=== PATIENT | female | born 1960 | race Caucasian/White ===

== ENCOUNTER 2023-07-08 15:30 | Emergency (ER) | payer OTHER, SELFPAY ==
[2023-07-08 15:31] VITALS: BP 110/69; PULSE 75; RESP 18; TEMP 36.4; O2SAT 98; BMI 29.0
--- NOTE | 2023-07-08 15:56 | EKG12_ITS ---
Test Reason : SC Blood Pressure : / mmHG Vent. Rate : 066 BPM Atrial Rate : 066 BPM P-R Int : 170 ms QRS Dur : 078 ms QT Int : 408 ms P-R-T Axes : 051 027 023 degrees QTc Int : 427 ms Normal sinus rhythm Normal ECG Confirmed by YAIR MARTINEZ MD ([id number]), editor map LIZETH NORRIS ([id number]) on 07/09/2023 10:58:22 AM Referred By: Confirmed By:YAIR MARTINEZ MD
--- NOTE | 2023-07-08 16:00 | RAD_ITS ---
INDICATION: cough EXAMINATION/TECHNIQUE: X-RAY - XR Chest 2 Views COMPARISON: None. FINDINGS: The lungs are clear. Tortuous and calcified thoracic aorta. The heart is borderline enlarged. No pleural effusion or pneumothorax. Degenerative changes of the thoracic spine. RAD/Chest PA and Lateral IMPRESSION: No acute radiographic abnormalities. Electronically Signed: Óscar Love MD at 16:45 EST ,
[2023-07-08 16:16] LABS: Absolute Lymphocyte Count 2.62 X10^3/uL (0.83-4.51); Absolute Neutrophil Count 1.7 X10^3/uL (2.0-7.7); Basophil# 0.02 X10^3/uL; Basophil% 0.4 % (0-1); Eosinophil# 0.22 X10^3/uL; Eosinophils% 4.5 % (0-5); Hematocrit 40.2 % (37-47); Hemoglobin 12.9 g/dL (12.0-15.0); Lymphocyte # 2.62 X10^3/ul (0.83-4.51); Lymphocyte % 53.3 % (19-41); Mean Corp Hgb Conc 32.1 g/dL (32-36); Mean Corpuscular Hgb 29.2 pg (27.0-32.0); Mean Platelet Vol. 10.1 fl (6.2-12.0); Monocyte# 0.31 X10^3/uL; Monocyte% 6.3 % (0-10); NRBC Flagged by Analyzer 0 % (0-5); Neutrophil # 1.74 X10^3/uL (2.7-7.7); Neutrophil % 35.3 % (47-70); Platelet Count 305 K/mm3 (150-450); RBC Distribution Width SD 43.2 fl (35.1-43.9); Red Blood Count 4.42 M/mm3 (4.2-5.4); White Blood Count 4.9 K/mm3 (4.4-11.0)
[2023-07-08 16:27] LABS: Anion Gap 4 (5-15); BUN 14 mg/dL (7-18); BUN/Creat Ratio 15.7 RATIO (10-20); Calcium,Total 8.9 mg/dL (8.5-10.1); Chloride 109 mmol/L (98-107); Creatinine, Serum 0.89 mg/dL (0.55-1.02); EST Glomerular Filtration Rate 68 mL/min (>60); Est Glom Filt Rate - Afr Amer 83 mL/min (>60); Estimated Creatinine Clearance 51.84 ml/min; Glucose 101 mg/dL (74-106); Sodium Level 141 mmol/L (136-145); Troponin-I HS 5 pg/mL (3.0-54.0)
--- NOTE | 2023-07-08 16:48 | EDS_ITS ---
<Statement entered by Carlie Bowling MD - 07/08/23 19:35> I have personally performed a face to face assessment of the patient and have reviewed the DOROTHEA Note. Patient presents secondary to continued cough and congestion. She states she first became ill about 6 or 8 weeks ago. A month ago she went to a urgent care that did not have x-ray available. Given her symptoms she was given antibiotics. This did not improve her symptoms and she presented to a different urgent care a week or 2 later. At that time she had an x-ray performed that showed no evidence of pneumonia and she was treated with prednisone. When this did not improve her symptoms she went back to urgent care where she was treated with a course of Augmentin which she has been taking the last several days. She states that she had some increased chest tightness on the right and was concerned that her pneumonia may have spread to the right lung. She has not had significant fever. She has had cough and is just now starting to bring up clear-colored sputum. She has not been taking anything for her cough at home. Patient sitting upright in bed no acute distress. Speaking full sentences. Head and neck examination unremarkable. Heart is regular rate and rhythm. Lung sounds are clear. Abdomen is soft and nontender. Neuro exam is normal. EKG reveals no evidence of acute ischemia. Lab work unremarkable including normal white count. Negative troponin. Two-view chest x-ray per my interpretation reveals no evidence of infiltrate. Test results are discussed with her. She will continue the Augmentin she is currently on. She will start taking the Mucinex that she has at home and we will write her for Tessalon Perles to help control cough. She was told she can also get Robitussin ove [id number]. She is comfortable with this plan. Return instructions given. HPI History of Present Illness Chief Complaint: Chest Other Narrative Narrative: Patient is a 63-year-old female with no significant medical history presents to the emergency department for ongoing cough has been ongoing for 6 to 8 weeks. Patient was diagnosed with pneumonia by two-view chest x-ray, placed on prednisone as well as amoxicillin. Patient had repeat x-rays that showed it was getting improved however patient still continued to have cough. Over the last 3 to 4 days, she is noticed the cough is continuing, this is despite the medication. She starts to feel heavy in her head as well as ongoing cough and chest pressure. She denies any fever or chills. [facility] Medical History no medical history Home Medications benzonatate 100 mg capsule 100 mg PO TID #30 caps 07/08/23 [Rx Last Taken Unknown] Allergy/AdvReac Type Severity Reaction Status Date / Time No Known Allergies Allergy Verified 07/08/23 15:31 Social History Smoking Status: Never smoker ROS ROS ED ROS Narrative Constitutional: Negative for fever, chills, weight loss, weakness Eyes: Negative for vision loss, vision change, double vision ENT: Negative for any sore throat, ear pain, congestion Cardiovascular: Negative for any palpitations. Positive for chest tightness Respiratory: Negative for any sputum production, hemoptysis, dyspnea on exertion, orthopnea. Positive for cough, dyspnea Gastrointestinal: Negative for any abdominal pain, nausea, vomiting, diarrhea, constipation, blood in stool, blood in vomit : Negative for any urinary frequency, dysuria, retention, blood in urine Muscle skeletal: Negative for any myalgias, arthralgias, neck pain, back pain Neurological: Negative for any headache, syncope, numbness or tingling, dizziness Skin: Negative for any rashes, lumps, itching, abrasions, lacerations Psychiatric: Negative for any depression, anxiety, stress, suicidal ideation, homicidal ideation Hematologic: Negative for any easy bruising, excessive bruising, easy bleeding Allergies: Negative for any eczema, hives, rash EXAM Physical Exam Narrative Exam Narrative: Vital signs reviewed. HEET: Head normocephalic atraumatic, TMs clear bilaterally. Posterior pharynx is clear, moist mucous membranes. Nares clear bilaterally. Neck: Supple with no lymphadenopathy or tenderness. No signs of meningismus. Cardiac: Regular rate and rhythm no murmurs gallops or rubs, equal peripheral pulses bilaterally. Respiratory: Lungs clear to auscultation bilaterally. No chest tenderness. Abdomen: Soft, nontender, nondistended. No abdominal bruit or pulsatile masses. No hepatosplenomegaly Extremities: No peripheral edema, no signs of gross trauma or deformity. Active full range of motion of all extremities. Neuro: Cranial nerves II through XII intact, no focal neurological deficits. Skin: Clean dry and intact with no rash, purpura, petechiae, vesicles or pustules. Backs/flank: No CVA tenderness, no midline spinal tenderness, no deformity. Psych: Normal mood and affect. No SI, HI or acute psychosis. Const Vital Signs: 07/08/23 15:31 Temperature 97.6 F L Temperature Source Temporal Pulse Rate 75 Respiratory Rate 18 Blood Pressure 110/69 Blood Pressure Mean 82 Pulse Ox 98 Oxygen Delivery Method Room Air Positive well nourished [facility] Lab Data Labs: Laboratory Results - last 24 hr 07/08/23 15:49 WBC 4.9 RBC 4.42 Hgb 12.9 Hct 40.2 MCV 91.0 MCH 29.2 MCHC 32.1 RDW Std Deviation 43.2 RDW Coeff of Zoltan 13.0 Plt Count 305 MPV 10.1 Immature Gran % (Auto) 0.200 Neut % (Auto) 35.3 L Lymph % (Auto) 53.3 H [place] % (Auto) 6.3 Eos % (Auto) 4.5 Baso % (Auto) 0.4 Absolute Neuts (auto) 1.7 L Absolute Lymphs (auto) 2.62 Nucleated RBC % 0 Sodium 141 Potassium 4.0 Chloride 109 H Carbon Dioxide 28.0 Anion Gap 4 L BUN 14 Creatinine 0.89 Estim Creat Clear Calc 51.84 Est GFR (MDRD) Af Amer 83 Est GFR (MDRD) Non-Af 68 BUN/Creatinine Ratio 15.7 Glucose 101 Calcium 8.9 Troponin I High Sens 5 Radiography Diagnostic Testing: Clinical Impression(s) from Imaging Studies Chest X-Ray 07/08/23 16:00 IMPRESSION: No acute radiographic abnormalities. Electronically Signed: Óscar Love MD at 16:45 EST , EKG EKG shows normal sinus: Attestation: I personally reviewed and interpreted this EKG as follows: Comments: Normal sinus rhythm, rate of 66 bpm, KS 170 ms, QRS duration 78 ms, no acute ST elevation, no acute infarct noted Treatment and Re-Evaluation :: Patient appears generally well, patient appears nontoxic, vital signs are stable. Presenting to the emergency department with complaints of cough has been ongoing for several weeks. Differential diagnose includes community- acquired pneumonia, COVID-19, viral sequelae. Patient will receive 2 view chest x-ray as well as basic laboratory values including troponin to rule out any cardiac involvement. EKG was unremarkable showing no ACS or NV. Patient's CBC was unremarkable, chemistries were unremarkable, troponin was negative. Two-view chest x-ray interpreted by ER physician was negative. Patient was negative for any COVID or flu. At this time, is no evidence of any cardiopulmonary disease, is no evidence of any pneumonia. Patient be given Tessalon Perles, she is instructed to use that as well is to continue her antibiotics. All questions were answered, she instructed return for any worsening symptoms Discharge Plan Triage Chief Complaint: Chest Other ED Midlevel Provider: Eleazar Pinto ED Provider: Carlie Bowling Dx/Rx/DC Orders Clinical Impression: Cough, Bronchitis Instructions: ED Bronchitis, No Antibiotic (Adult), ED Cough Chronic Uncertain Cause Adult Prescriptions: New benzonatate 100 mg capsule 100 mg PO TID Qty: 30 0RF Primary Care Provider: Care Physician,No Primary Referrals: Care Physician,No Primary [Primary Care Provider] - Activity Restrictions/Additional Instructions: Take your antibiotics until finished. Use the Tessalon Perles, they are 100 mg, you may take 1-2 tabs at a time. Return for any worsening symptoms. Disposition Disposition: Home, Self Care
[2023-07-08 17:16] VITALS: BP 135/72; PULSE 66; RESP 13; O2SAT 99
== END 2023-07-08 17:23 | disposition home or self-care (01) ==
PROVIDERS: Nurse Practitioner; Emergency Provider Emergency Medicine; Visit Provider Emergency Medicine
DX: R05.9 Cough, unspecified (principal); J40 Bronchitis, not specified as acute or chronic
CPT/HCPCS: 71046; 80048; 84484; 85025; 87428; 93005; 99283; A4216